=== PATIENT | male | born 2000 | race Caucasian/White ===

== ENCOUNTER 2024-10-25 23:40 | Inpatient (IN) | payer BC, SELFPAY ==
[2024-10-26] MEDS ORDERED: Dextrose 50% Abboject 50 ML SYRINGE SLOW IVP PRN ×2 (00:18→00:45)
[2024-10-26] MEDS ORDERED: Glucagon 1 MG/ML KIT IM PRN ×2 (00:18→00:45)
[2024-10-26] MEDS ORDERED: Dextrose 5% in Water 1,000 ML IV PRN ×2 (00:18→00:45)
[2024-10-26] MEDS ORDERED: Vancomycin 1.5 GRAM/300 ML BAG ONE (00:30)
[2024-10-26] MEDS ORDERED: Acetaminophen 500 MG TAB PO PRN (00:38)
[2024-10-26] MEDS ORDERED: Ketorolac Tromethamine 30 MG (1 mL) VIAL IVP PRN (00:38)
[2024-10-26] MEDS ORDERED: HYDROcodone/Acetaminophen 5/325 mg Tablet PO PRN (00:41)
[2024-10-26] MEDS ORDERED: Melatonin 3 MG TAB PO PRN (00:42)
[2024-10-26] MEDS ORDERED: Morphine 2 MG/ML VIAL SLOW IVP PRN (00:42)
[2024-10-26] MEDS ORDERED: diphenhydrAMINE 25 MG CAP PO PRN (00:43)
[2024-10-26] MEDS ORDERED: HYDROcodone/Acetaminophen 5/325 mg Tablet ONE (00:45)
[2024-10-26] MEDS ORDERED: Piperacillin/Tazobactam 3.375 GM VIAL ONE (00:45)
[2024-10-26] MEDS ORDERED: Melatonin 3 MG TAB ONE (00:45)
[2024-10-26] MEDS ORDERED: diphenhydrAMINE 25 MG CAP ONE (00:45)
[2024-10-26] MEDS ORDERED: Insulin Lispro 100 UNIT/ML 10 ML VIAL SC PRN (00:45)
[2024-10-26 07:08] LABS: #Basophils 0.02 10x3/uL (0.0-0.2); #Eosinophils 0.41 10x3/uL (0.0-0.5); #Monocytes 1.33 10x3/uL (0.0-1.1); #Neutrophils 7.93 10x3/uL (1.5-8.4); %Basophils 0.2 % (0.0-2.0); %Eosinophils 3.7 % (0.0-6.0); %Neutrophils 71.7 % (40.0-75.0); Hematocrit 41.5 % (38.8-50.0); Hemoglobin 14.2 g/dL (13.5-17.5); Mean Corpuscular HGB CONC 34.2 g/dL (32.0-36.0); Mean Corpuscular Hemoglobin 30.1 pg (27.0-33.0); Mean Corpuscular Volume 87.9 fL (81.2-95.1); Platelet Count 168 10x3/uL (150-450); RBC Distribution Width 12.8 % (11.5-14.5); Red Blood Cell (RBC) Count 4.72 10x6/uL (4.32-5.72); White Blood Cell (WBC) Count 11.1 10x3/uL (3.5-10.5)
[2024-10-26 07:37] LABS: Anion Gap 13 mmol/L (10-20); BUN (Urea Nitrogen) 10 mg/dL (8.9-20.6); Calc. Creatinine Clearance 213 mL/min (70-130); Calcium 8.7 mg/dL (7.8-10.44); Carbon Dioxide 23 mmol/L (22-29); Chloride 108 mmol/L (98-107); Estimated GFR 116; Glucose 116 mg/dL (70-105); Potassium 3.8 mmol/L (3.5-5.1); Sodium 140 mmol/L (136-145)
[2024-10-26 07:40] VITALS: BMI 33.5
[2024-10-26] MEDS: Vancomycin 1.5 GRAM/300 ML BAG 1.5 GM in Premix 1 BAG IVPB SCH (08:58)
[2024-10-26] MEDS: Piperacillin/Tazobactam 3.375 GM in Sodium Chloride 0.9% 100 ML IVPB SCH (08:58)
[2024-10-26] MEDS: VANCOMYCIN 1.75 GM/350 ML BAG 1.75 GM in Premix 1 BAG IVPB SCH (10:11)
[2024-10-26] MEDS: Enoxaparin 40 MG (0.4 mL) SYRINGE SC SCH (10:11)
[2024-10-26 16:25] LABS: Hemoglobin A1c 5.8 % (4.0-6.0)
[2024-10-26] MEDS: FLU (Fluarix Triv) TS24-25(6MOS UP)/PF 45 MCG/0.5 ML Syringe IM ONE (17:01)
[2024-10-27 05:43] LABS: #Basophils 0.02 10x3/uL (0.0-0.2); #Eosinophils 0.51 10x3/uL (0.0-0.5); #Monocytes 1.04 10x3/uL (0.0-1.1); #Neutrophils 6.36 10x3/uL (1.5-8.4); %Basophils 0.2 % (0.0-2.0); %Eosinophils 5.3 % (0.0-6.0); %Lymphocytes 16.5 % (18.0-47.0); %Monocytes 10.9 % (0.0-10.0); %Neutrophils 66.7 % (40.0-75.0); Hematocrit 43.7 % (38.8-50.0); Hemoglobin 14.7 g/dL (13.5-17.5); Mean Corpuscular HGB CONC 33.6 g/dL (32.0-36.0); Mean Corpuscular Hemoglobin 29.1 pg (27.0-33.0); Mean Corpuscular Volume 86.5 fL (81.2-95.1); Mean Platelet Volume 10.3 fL (7.4-10.4); Platelet Count 206 10x3/uL (150-450); RBC Distribution Width 12.4 % (11.5-14.5); Red Blood Cell (RBC) Count 5.05 10x6/uL (4.32-5.72); White Blood Cell (WBC) Count 9.6 10x3/uL (3.5-10.5)
[2024-10-27 05:54] LABS: Vancomycin, Random 36.2 ug/mL (See Comment)
[2024-10-27] MEDS: Vancomycin 1 GM in Sodium Chloride 0.9% 250 ML 250 ML IVPB SCH (08:52)
[2024-10-27] MEDS: Lisinopril 5 MG TAB PO SCH (08:53)
[2024-10-27 12:17] VITALS: BP 140/89; TEMP 98.4
== END 2024-10-27 13:27 | disposition home or self-care (01) | DRG 872 ==
LOC: CSHTELE 23:40
PROVIDERS: ADMIT Family Medicine; ATTEND Internal Medicine
DX: A41.9 Sepsis, unspecified organism (principal); L03.314 Cellulitis of groin; I10 Essential (primary) hypertension; R73.03 Prediabetes; R73.9 Hyperglycemia, unspecified; Z90.89 Acquired absence of other organs; Z98.890 Other specified postprocedural states; Z53.9 Procedure and treatment not carried out, unspecified reason; F17.210 Nicotine dependence, cigarettes, uncomplicated
CPT/HCPCS: 36415; 36416; 80048; 80202; 83036; 85025; J1650; J2543; J3370; J7050